=== PATIENT | female | born 1980 | race Caucasian/White ===

== ENCOUNTER 2016-07-28 09:35 | Emergency (ER) | payer OTHER ==
[~2016-07-28] VITALS: Ht 162.6 cm; Wt 70.0 kg
[~2016-07-28 09:35] MED LIST: ESTR1TAB24 PO; LIDO700A6 TP; OXYC1TAB24 PO
[2016-07-28 09:43] VITALS: BP 111/76; PULSE 73; RESP 16; O2SAT 99
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
--- NOTE | 2016-07-28 10:14 | DRSVH ---
PROCEDURE: CT CERVICAL SPINE WITHOUT CONTRAST ([id number]) INDICATIONS: trauma TECHNIQUE: Noncontrast 3 mm thick sections acquired from the skull base to the T4 level. Sagittal and coronal r eformats were then constructed. For radiation dose reduction, the following was used: automated exp osure control, adjustment of mA and/or kV according to patient size. COMPARISON: None. FINDINGS: Image quality: Excellent. Bones: No fractures or dislocations. Visualized superior ribs are intact. Postsurgical changes rel ated to ACDF at the C5-C6 level and the hardware appears intact and in expected postoperative alignme nt. No evidence of loosening. 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 No paravertebral hematomas. No ap ical pneumothoraces. IMPRESSION: No acute fracture. Degenerative and postsurgical changes as detailed above. Dictated by: Christopher Ferris M.D. on 07/28/2016 at 10:08 Approved by: Christopher Ferris M.D. on 07/28/2016 at 10:12
== END 2016-07-28 10:46 | disposition home or self-care (01) ==
LOC: SED 09:35
DX: S16.1XXA Strain of muscle, fascia and tendon at neck level, initial encounter (principal); W01.0XXA Fall on same level from slipping, tripping and stumbling without subsequent striking against object, initial encounter; Y93.89 Activity, other specified; Y92.098 Other place in other non-institutional residence as the place of occurrence of the external cause; Y99.8 Other external cause status; M79.7 Fibromyalgia; F17.200 Nicotine dependence, unspecified, uncomplicated; Z88.5 Allergy status to narcotic agent; Z88.8 Allergy status to other drugs, medicaments and biological substances; Z88.1 Allergy status to other antibiotic agents; Z88.2 Allergy status to sulfonamides; Z91.040 Latex allergy status

== ENCOUNTER 2016-10-04 08:29 | Emergency (ER) | payer OTHER ==
[~2016-10-04] VITALS: Ht 162.6 cm; Wt 70.0 kg
[2016-10-04 08:37] VITALS: BP 119/77; PULSE 76; RESP 17; O2SAT 97
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
== END 2016-10-04 09:49 | disposition home or self-care (01) ==
LOC: SED 08:29
DX: S39.012A Strain of muscle, fascia and tendon of lower back, initial encounter (principal); X50.0XXA Overexertion from strenuous movement or load, initial encounter; Y93.89 Activity, other specified; Y92.89 Other specified places as the place of occurrence of the external cause; Y99.8 Other external cause status; F41.8 Other specified anxiety disorders; M79.7 Fibromyalgia; F17.200 Nicotine dependence, unspecified, uncomplicated; Z88.1 Allergy status to other antibiotic agents; Z88.2 Allergy status to sulfonamides; Z88.5 Allergy status to narcotic agent; Z88.8 Allergy status to other drugs, medicaments and biological substances; Z91.040 Latex allergy status

== ENCOUNTER 2016-10-11 19:47 | Emergency (ER) | payer OTHER ==
[~2016-10-11] VITALS: Ht 162.6 cm; Wt 70.0 kg
[2016-10-11 20:13] VITALS: BP 119/83; PULSE 61; RESP 16; O2SAT 99
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
[2016-10-11] MEDS ORDERED: HYDROmorphone 1 mg/mL Inj IM ONE (22:05)
[2016-10-11] MEDS ORDERED: PRE20 PO (23:23)
[2016-10-11] MEDS ORDERED: predniSONE 20 mg Tablet PO ONE (23:25)
[2016-10-11] MEDS ORDERED: _oxyCODONE/APAP 5-325 mg Tablet PO PRN (23:25)
[2016-10-11 23:57] VITALS: BP 119/83; PULSE 61; RESP 16; O2SAT 99
--- NOTE | 2016-10-12 08:37 | DRSVH ---
PROCEDURE: MRI LUMBAR SPINE WITHOUT CONTRAST ([id number]) INDICATIONS: Sciatica and urinary incontinence after lifting TECHNIQUE: Noncontrast sagittal T1 spin echo and T2 fast echo, sagittal STIR, axial T1 and T2 fast spin echo thr ough the lumbar spine. In cases with scoliosis, additional coronal T2 fast spin echo may be performe d. COMPARISON: [facility], MR, MR FOREFOOT LT WO CON, 08/26/2015, 10:16. CT f rom 10/20/2011 FINDINGS: Image quality: Excellent. Alignment and Curvature: There is normal bony alignment. Bone Marrow: There is increased T2 and decreased T1 signal in the superior L5 vertebral body endplate with less than 25% height loss greatest in the central portion of the vertebral body. No retropulsed fragments. Spinal Cord: Conus medullaris terminates at the L1 level. Visualized cord demonstrates normal signa l and size. Paraspinous Soft Tissues: No paravertebral masses. T10-11: Right paracentral posterior disc bulge contacts and deforms the spinal cord with no spinal co rd edema. Given differences in technique this finding is likely stable since a 10/20/[address] T11-12: Normal appearance. T12-L1: Normal appearance. L1-L2: Normal appearance. L2-L3: Normal appearance. L3-L4: Minimal facet joint hypertrophy. No central spinal canal or neural foraminal narrowing areas. L4-L5: Minimal facet joint hypertrophy. Minimal intervertebral body disc height loss. Central spinal canal and neural foramen are patent. L5-S1: Minimal facet joint hypertrophy. Minimal right neural foraminal narrowing. The central spinal canal and left neural foramen are patent. IMPRESSION: 1. Edema and mild height loss in the superior L5 vertebral endplate may represent an acute Schmorl's node, endplate fissuring with inflammatory change and granulation tissue, or a mild compression fract ure given the history of trauma. No retropulsed fragments. 2. Disc bulge at T10-11 deforms the right paracentral spinal cord with no edema. Given differences in technique, this finding is stable since a October [address] CT. 3. No significant central spinal canal and neural foraminal narrowing in lumbar spine. 4. There are no discrepancies with the preliminary report. Dictated by: Wiley Webb M.D. on 10/12/2016 at 8:19 Approved by: Wiley Webb M.D. on 10/12/2016 at 8:30
== END 2016-10-11 23:59 | disposition home or self-care (01) ==
LOC: SED 19:47
DX: M54.42 Lumbago with sciatica, left side (principal); X50.0XXA Overexertion from strenuous movement or load, initial encounter; Y93.89 Activity, other specified; Y92.89 Other specified places as the place of occurrence of the external cause; Y99.8 Other external cause status; R32 Unspecified urinary incontinence; R20.0 Anesthesia of skin; R20.2 Paresthesia of skin; M79.604 Pain in right leg; M79.7 Fibromyalgia; F41.8 Other specified anxiety disorders; F17.200 Nicotine dependence, unspecified, uncomplicated; Z98.890 Other specified postprocedural states; Z88.1 Allergy status to other antibiotic agents; Z88.2 Allergy status to sulfonamides; Z88.5 Allergy status to narcotic agent; Z88.8 Allergy status to other drugs, medicaments and biological substances; Z91.040 Latex allergy status
CPT/HCPCS: 72148; 96372; 99284; J1170